=== PATIENT | male | born 1970 | race Caucasian/White ===

== ENCOUNTER 2019-07-19 12:23 | Emergency (ER) | payer OTHER ==
[~2019-07-19] VITALS: Ht 177.8 cm; Wt 99.8 kg
[2019-07-19] MEDS ORDERED: HYDROCODONE/APAP 5MG-325MG TAB PO NR (12:30)
--- NOTE | 2019-07-19 12:37 | NUR ---
RADIOLOGY AT BEDSIDE FOR X-RAY AT THIS TIME.
[2019-07-19] MEDS ORDERED: KETOROLAC TROMETHAMINE 10 MG TAB PO PRN (13:30)
[2019-07-19] MEDS ORDERED: HYDROCODONE/APAP 10MG-325MG TAB PO ONE (13:30)
[2019-07-19] MEDS ORDERED: BUPIVACAINE HCL 0.25% 10ML MPF VIAL INJ NR (14:00)
[2019-07-19] MEDS ORDERED: MORPHINE SULFATE INJ 4 MG/ML INJ 1ML IM PRN (14:15)
--- NOTE | 2019-07-19 15:00 | NUR ---
PT MEDICATED WITH MORPHINE 4 MG IM BY KAL CUI AND SPLINT PLACED TO LT ARM.
--- NOTE | 2019-07-19 15:08 | Diagnostic Imaging Report ---
Left wrist radiographs 3 views HISTORY: Pain. COMPARISON: None available. FINDINGS: Bones: Acute impacted comminuted minimally displaced and angulated intra-articular distal radial fracture. Joints: The joint spaces are well-maintained. Soft tissues: Soft tissue swelling about the wrist IMPRESSION: Acute impacted comminuted minimally displaced and angulated intra-articular distal radial fracture. Signed by: Ronan Monroe DO on 07/19/2019 3:05 PM
[2019-07-19 15:19] VITALS: BP 127/99
== END 2019-07-19 15:30 | disposition home or self-care (01) ==
LOC: ER 12:23
DX: S52.322A Displaced transverse fracture of shaft of left radius, initial encounter for closed fracture (principal); W18.30XA Fall on same level, unspecified, initial encounter; Y93.65 Activity, lacrosse and field hockey; Y92.39 Other specified sports and athletic area as the place of occurrence of the external cause
CPT/HCPCS: 29125; 73110; 99283; J2270

== ENCOUNTER → 2021-03-31 | Outpatient (CLI) | payer OTHER | LOC: RAD 14:00 | PROVIDERS: ATTEND Internal Medicine | DX: R07.81 Pleurodynia (principal); S20.211A Contusion of right front wall of thorax, initial encounter | CPT/HCPCS: 71046; 71101 ==

== ENCOUNTER → 2021-09-06 | Outpatient (CLI) | payer OTHER | LOC: RAD 13:43 | PROVIDERS: ATTEND Internal Medicine | DX: M79.641 Pain in right hand (principal) ==

== ENCOUNTER → 2022-05-09 | Outpatient (CLI) | payer OTHER | LOC: RAD 13:36 | PROVIDERS: ATTEND Internal Medicine | DX: M25.552 Pain in left hip (principal); M54.6 Pain in thoracic spine; M79.672 Pain in left foot | CPT/HCPCS: 72072 ==